=== PATIENT | male | born 1960 | race Caucasian/White ===

== ENCOUNTER → 2017-01-30 | Outpatient (CLI) | payer OTHER ==
[~2017-01-30] MED LIST: ALBUTEROL17 G1 IH; ALBUTEROL17 GM INH; ANXIETY PILL; ASMANEX0.135 GM IH; ASPIR-TRIN325 MG PO; ASPIRIN325 M1 PO; BENTYL20 M1 PO; DICLOFENAC PO; EFFEXOR XR PO; GLUCOTROL; HUMULIN 70100 UNIT/1 SUBQ; KLOR-CON PO; LASIX PO; LISINOPRIL5 MG PO; METFORMIN; METFORMIN HCL500 M1 PO; NEURONTIN PO; NEURONTIN100 MG; NEURONTIN800 MG PO; NITROSTAT0.4 MG SL; OMEPRAZOLE40 M1 PO; PERCOCET5/325 PO; PHENERGAN25 M1 PO; PRILOSEC PO; SPIRIVA18 MCG INH; SYMBICORT 160/4.6 GM; TYLENOL #3 PO; VOLTAREN75 MG PO; WELLBUTRIN100 MG PO; ZESTRIL5 MG PO; ZOFRAN ODT4 MG PO; ZYLOPRIM PO
--- NOTE | ~2017-01-30 | MR58 ---
[facility]. [facility] A Service of [facility] [place] RADIOLOGY TEXT RESULTS PATIENT: VINOD ORTIZ LOCATION: [facility] : 62 UNIT #: [id number] AGE: [address]: SURAJ HALL DPM SEX: M ORDER DR: [id number] [address] [address] [id number] O MR#: [id number] Acc #: [id number] NAME: VINOD ORTIZ : 1960 SEX: M STUDY DATE/TIME: 01/30/2017 9:49 UNIT: [facility] ROOM: STUDY DESCRIPTION: MR Foot WWo Contrast Lt Attending Physician: Suraj Hall Dpm Referring Physician: Suraj Hall Dpm Ordering Physician: Delfin Webb M.D. Primary Care Physician: Anant Ragsdale M.D. MRI CENTER REPORT This report is preliminary unless electronic signature is present. EXAM MRI of the left forefoot, with and without contrast. DATE OF EXAM 01/30/2017 HISTORY Small diabetic wounds, plantar side of head of 5th toe. It has been there for about 2 months. Clinical concern for osteomyelitis. TECHNIQUE Multiplanar, multiecho imaging was performed of the forefoot, utilizing a high-field magnet dedicated protocol. Short-axis coronal T1-weighted images were performed following IV gadolinium. FINDINGS Bone structure and alignment appears normal. No marrow edema or T1 marrow replacement is identified to suggest osteomyelitis. No significant arthropathy. Generalized atrophy of the intrinsic musculature of the foot compatible with long-standing neurovascular disease. Generalized soft tissue swelling and edema. There is confluent edema along the plantar aspect of the 5th metatarsal head, but no deep penetrating ulcer identified. No drainable fluid collection or abscess. Minimal enhancement within the soft tissues. Extensor and flexor tendons appear normal. IMPRESSION 1. Shallow plantar ulcer along the plantar surface of the forefoot, plantar to the 5th metatarsal head. No deep penetrating ulcer identified and no findings to suggest septic arthritis or underlying osteomyelitis. No drainable fluid collection or abscess. 2. Diffuse changes in the mid and forefoot compatible with long-standing neurovascular disease. [facility] A Service of [facility] RADIOLOGY TEXT RESULTS PATIENT: VINOD ORTIZ LOCATION: [facility] : [birth year] UNIT #: [id number] AGE: [address]: SURAJ HALL DPM SEX: M ORDER DR: Dictated by... Jaqui Ballesteros M.D. THIS IS AN ELECTRONICALLY VERIFIED REPORT Jaqui Ballesteros M.D. at 01/31/2017 5:01 PM JOSHUA/bhavesh TD: 01/30/2017 17:53 JOB #: [id number] MRI CENTER REPORT
[2017-01-30 10:46] LABS: POC - CREATININE 1.09 mg/dL (0.64-1.27); POC - GFR >60.0 mL/min (>60)
== END | disposition home or self-care (01) ==
LOC: SMRI 09:14
PROVIDERS: Podiatrist Foot & Ankle Surgery
DX: M86.672 Other chronic osteomyelitis, left ankle and foot (principal); L97.529 Non-pressure chronic ulcer of other part of left foot with unspecified severity
CPT/HCPCS: 73720; 82565; A9581

== ENCOUNTER 2017-06-15 18:12 | Emergency (ER) | payer OTHER ==
--- NOTE | ~2017-06-15 | EKG ---
PATIENT: VINOD ORTIZ UNIT #: [id number] Ventricular Rate: 90 BPM Atrial Rate: 90 BPM P-R Interval: 162 ms QRS Duration: 94 ms Q-T Interval: 354 ms QTC Calculation(Bezet): 433 ms P [place]: 37 degrees Calculated R [place]: 0 degrees Calculated T [place]: 18 degrees Diagnosis Line: Normal sinus rhythm Diagnosis Line: Nonspecific T wave abnormality Diagnosis Line: Abnormal ECG Diagnosis Line: When compared with ECG of 06-DEC-2013 09:43, Diagnosis Line: Nonspecific T wave abnormality, improved in Diagnosis Line: Inferior leads Diagnosis Line: Confirmed by FLEX LEW MD ([id number]) on Diagnosis Line: 06/20/2017 8:39:06 AM INTERPRETING MD: LOUANN ASNDRA
--- NOTE | ~2017-06-15 | CT2 ---
[facility]. [facility] A Service of [facility] RADIOLOGY TEXT RESULTS PATIENT: VINOD ORTIZ LOCATION: SED : 62 UNIT #: [id number] AGE: [address]: Toni Lozano MD SEX: M ORDER DR: [id number] [address] [address] [id number] E MR#: [id number] Acc #: [id number] NAME: VINOD ORTIZ : 1960 SEX: M STUDY DATE/TIME: 06/15/2017 19:18 UNIT: SED ROOM: STUDY DESCRIPTION: CT Abd and Pelv W Cont Attending Physician: Toni Lozano M.D. Ordering Physician: Toni Lozano M.D. Primary Care Physician: Anant Ragsdale M.D. MEDICAL IMAGING REPORT This report is preliminary unless electronic signature is present. EXAM CT abdomen and pelvis with IV contrast HISTORY Right lower quadrant pain today. TECHNIQUE This CT exam was performed with one or more of the following radiation dose reduction techniques: automatic control, adjustment of mA and/or kV according to patient size, and iterative reconstruction. FINDINGS CT abdomen and pelvis was performed with IV contrast. CT ABDOMEN: Diffuse fatty infiltration of the liver. No hepatic mass. No biliary ductal dilatation. The gallbladder, spleen, pancreas, kidneys, and adrenal glands are normal. Normal caliber abdominal aorta. Mildly enlarged aortocaval lymph node just inferior to the renal angel could be reactive or inflammatory. No free fluid. CT PELVIS: Appendiceal dilatation measuring 1.7 cm in diameter and containing several appendicoliths, with moderate appendiceal wall thickening and moderate periappendiceal stranding, all characteristic of acute appendicitis. No adjacent abscess. The appendix lies inferomedial to the cecal tip in the lateral right mid pelvis. No free fluid. No abscess. No bowel dilatation. Urinary bladder is normal. IMPRESSION 1. Acute appendicitis. The appendix measures 1.7 cm in diameter and there is adjacent periappendiceal stranding. Several small appendicoliths. 2. No abscess or free fluid. 3. Fatty infiltration of the liver. [facility] A Service of [facility] RADIOLOGY TEXT RESULTS PATIENT: VINOD ORTIZ LOCATION: [facility] : 62 UNIT #: [id number] AGE: [address]: Toni Lozano MD SEX: M ORDER DR: Dictated by... Brice Orlando M.D. THIS IS AN ELECTRONICALLY VERIFIED REPORT Brice Orlando M.D. at 06/16/2017 1:19 PM DFL/rnr TD: 06/16/2017 00:52 JOB #: [id number] MEDICAL IMAGING REPORT Page 1 of 1
[~2017-06-15 18:12] MED LIST changes: -GLUCOTROL; -METFORMIN
[2017-06-15] MEDS ORDERED: METFORMIN (18:18)
[2017-06-15] MEDS ORDERED: GLUCOTROL (18:18)
[2017-06-15 18:56] LABS: BASOPHIL# 0.2 X10e3 (0-0.3); BASOPHIL% 1.1 % (0-2.5); EOSINOPHIL# 0.2 X10e3 (0-0.7); EOSINOPHIL% 0.9 % (0.0-7.0); HEMATOCRIT 42.7 % (38.0-50.0); HEMOGLOBIN 14.2 gm/dL (13.0-16.0); LYMPHOCYTE# 3.1 X10e3 (1.0-3.5); LYMPHOCYTE% 16.6 % (17.0-45.0); MEAN CELL VOLUME 83.8 FL (83-96); MEAN CORPUSCULAR HEMOGLOBIN 27.9 PG (28-34); MEAN CORPUSCULAR HGB CONC 33.2 g/dL (30-36); MEAN PLATELET VOLUME 6.8 FL (6.5-11.5); MONOCYTE# 1.2 X10e3 (0-1.0); MONOCYTE% 6.6 % (3.0-12.0); NEUTROPHIL# 14.1 X10e3 (1.5-7.1); NEUTROPHIL% 74.8 % (40-75); PLATELET COUNT 293 X10e3 (140-420); RED BLOOD COUNT 5.09 X10e (3.90-5.60); RED CELL DISTRIBUTION WIDTH 14.4 % (11.0-15.5); WHITE BLOOD COUNT 18.9 X10e3 (4.0-10.5)
[2017-06-15 18:59] LABS: DIFF IND NO
[2017-06-15 19:07] LABS: ALBUMIN SERUM 4.1 g/dL (3.5-5.0); ALKALINE PHOSPHATASE 83 U/L (32-92); ALT (SGPT) 23 U/L (10-40); AST (SGOT) 23 U/L (10-42); BILIRUBIN, DIRECT <0.1 mg/dL (0.0-0.2); BILIRUBIN,INDIRECT 0.3 mg/dL (0.0-0.9); BILIRUBIN,TOTAL 0.4 mg/dL (0.2-2.0); BLOOD UREA NITROGEN 10 mg/dL (9-23); CALCIUM SERUM 9.2 mg/dL (8.4-10.2); CARBON DIOXIDE 23 mmol/L (22-31); CHLORIDE 98 mmol/L (100-111); CREATININE SERUM 0.8 mg/dL (0.6-1.4); GLOM FILT RATE Estimated 100.6 mL/min (>60); GLUCOSE FASTING 189 mg/dL (70-110); LIPASE 28 U/L (22-51); POTASSIUM 4.2 mmol/L (3.5-5.1); PROTEIN TOTAL SERUM 7.8 g/dL (6.0-8.3); SODIUM 132 mmol/L (135-145)
== END 2017-06-15 23:21 ==
LOC: SED 18:12
PROVIDERS: Emergency Medicine
DX: K35.80 Unspecified acute appendicitis (principal); J44.9 Chronic obstructive pulmonary disease, unspecified; K21.9 Gastro-esophageal reflux disease without esophagitis; F41.9 Anxiety disorder, unspecified; E11.9 Type 2 diabetes mellitus without complications; F17.200 Nicotine dependence, unspecified, uncomplicated; Z86.73 Personal history of transient ischemic attack (TIA), and cerebral infarction without residual deficits; Z98.890 Other specified postprocedural states; Z88.1 Allergy status to other antibiotic agents; Z88.8 Allergy status to other drugs, medicaments and biological substances; Z79.899 Other long term (current) drug therapy
CPT/HCPCS: 36415; 74177; 80048; 80076; 82947; 83690; 85025; 93005; 96374; 96375; 99285; J1170; J1200; J1956; J2405; Q9967

== ENCOUNTER 2017-07-14 16:10 | Emergency (ER) | payer OTHER ==
--- NOTE | ~2017-07-14 | CT2 ---
[facility] A Service of [facility] RADIOLOGY TEXT RESULTS PATIENT: VINOD ORTIZ LOCATION: SED : 62 UNIT #: [id number] AGE: [address]: RED LONG SEX: M ORDER DR: [id number] [address] [address] [id number] E MR#: [id number] Acc #: [id number] NAME: VINOD ORTIZ : 1960 SEX: M STUDY DATE/TIME: 07/14/2017 19:07 UNIT: SED ROOM: STUDY DESCRIPTION: CT Abd and Pelv W Cont Attending Physician: Red Long Ordering Physician: Red Long Primary Care Physician: Anant Ragsdale M.D. MEDICAL IMAGING REPORT This report is preliminary unless electronic signature is present. EXAM CT abdomen and pelvis with contrast DATE 07/14/2017 HISTORY 56-year-old male left lower quadrant abdominal pain for years but has gotten worse approximately 1 month ago. Appendectomy, June 16, 2017. COMPARISON CT abdomen and pelvis with contrast 06/15/2017. PROCEDURE 5 mm axial images from lung bases through lesser trochanters after intravenous contrast administration. Enteric contrast was not administered. Sagittal and coronal reformatted images were obtained. This CT exam was performed with one or more of the following radiation dose reduction techniques: automatic control, adjustment of mA and/or kV according to patient size, and iterative reconstruction. FINDINGS ABDOMEN FINDINGS: Appendix is surgically absent. No abscess is seen. Limited evaluation of bowel due to lack of enteric contrast but no focal bowel inflammation is seen. There is moderate stool burden in the distal descending colon and sigmoid colon. No abnormal small bowel dilation. There are shotty retroperitoneal lymph nodes which are nonspecific, and are favored to represent benign, reactive changes, and appears similar to prior exam. The liver is diffusely steatotic. Gallbladder is contracted. The spleen, pancreas and adrenal glands and kidneys appear within normal limits. Lung [facility] A Service of [facility] RADIOLOGY TEXT RESULTS PATIENT: VINOD ORTIZ LOCATION: SED : 62 UNIT #: [id number] AGE: [address]: RED LONG SEX: M ORDER DR: bases are free of consolidation, with probable mild peripheral interstitial fibrosis. PELVIS FINDINGS: Urinary bladder, prostate and rectum are normal. No pelvic adenopathy or free fluid is identified. No acute osseous abnormalities. IMPRESSION 1. Moderate stool burden greatest in the descending and sigmoid colon. Correlate for constipation symptoms. 2. No acute findings in the abdomen or pelvis 3. Appendectomy. 4. Hepatic steatosis. Dictated by... Juana Gaspar M.D. THIS IS AN ELECTRONICALLY VERIFIED REPORT Juana Gaspar M.D. at 07/15/2017 2:03 PM JEAN CARLOS/rach TD: 07/15/2017 02:05 JOB #: [id number] MEDICAL IMAGING REPORT Page 1 of 1
[~2017-07-14 16:10] MED LIST changes: +GLUCOTROL; +METFORMIN
[2017-07-14 17:28] LABS: BASOPHIL# 0.1 X10e3 (0-0.3); BASOPHIL% 1.2 % (0-2.5); EOSINOPHIL# 0.2 X10e3 (0-0.7); EOSINOPHIL% 2.3 % (0.0-7.0); HEMATOCRIT 41.2 % (38.0-50.0); LYMPHOCYTE# 3.6 X10e3 (1.0-3.5); LYMPHOCYTE% 35.5 % (17.0-45.0); MEAN CELL VOLUME 82.6 FL (83-96); MEAN CORPUSCULAR HEMOGLOBIN 28.1 PG (28-34); MEAN PLATELET VOLUME 6.7 FL (6.5-11.5); MONOCYTE# 0.7 X10e3 (0-1.0); MONOCYTE% 6.7 % (3.0-12.0); NEUTROPHIL# 5.5 X10e3 (1.5-7.1); NEUTROPHIL% 54.3 % (40-75); PLATELET COUNT 269 X10e3 (140-420); RED BLOOD COUNT 4.99 X10e (3.90-5.60); RED CELL DISTRIBUTION WIDTH 14.7 % (11.0-15.5)
[2017-07-14 18:12] LABS: ALBUMIN SERUM 3.8 g/dL (3.5-5.0); ALKALINE PHOSPHATASE 78 U/L (32-92); ALT (SGPT) 19 U/L (10-40); AMYLASE 21 U/L (0-46); AST (SGOT) 19 U/L (10-42); BILIRUBIN,TOTAL 0.3 mg/dL (0.2-2.0); BLOOD UREA NITROGEN 12 mg/dL (9-23); BUN/CREATININE RATIO 13.33; CALCIUM SERUM 8.8 mg/dL (8.4-10.2); CARBON DIOXIDE 27 mmol/L (22-31); CHLORIDE 97 mmol/L (100-111); CREATININE SERUM 0.9 mg/dL (0.6-1.4); DIFF IND NO; GLOM FILT RATE Estimated 95.8 mL/min (>60); GLUCOSE FASTING 262 mg/dL (70-110); LIPASE 40 U/L (22-51); POTASSIUM 3.9 mmol/L (3.5-5.1); PROTEIN TOTAL SERUM 7.6 g/dL (6.0-8.3); SODIUM 134 mmol/L (135-145)
[2017-07-14 18:26] LABS: BILIRUBIN, DIRECT <0.1 mg/dL (0.0-0.2); BILIRUBIN,INDIRECT 0.2 mg/dL (0.0-0.9)
[2017-07-14 18:42] LABS: URINE SOURCE CLEAN CATCH
[2017-07-14 18:44] LABS: URINE APPEARANCE CLEAR; URINE BILIRUBIN NEG (NEG); URINE BLOOD NEG (NEG); URINE COLOR YELLOW; URINE GLUCOSE NEG (NORM); URINE KETONE NEG (NEG); URINE LEUKOCYTE ESTERASE NEG (NEG); URINE NITRATE NEG (NEG); URINE PROTEIN NEG (NEG); URINE UROBILINOGEN 0.2 MG/DL (NORM)
[2017-07-14 18:45] LABS: MICRO INDICATED? NO
== END 2017-07-14 20:39 | disposition home or self-care (01) ==
LOC: SED 16:10
PROVIDERS: Physician Assistant
DX: K59.00 Constipation, unspecified (principal); Z88.1 Allergy status to other antibiotic agents; Z79.899 Other long term (current) drug therapy
CPT/HCPCS: 36415; 74177; 80048; 80076; 81003; 82010; 82150; 82947; 83605; 83690; 85025; 96360; 99284; Q9967